=== PATIENT | male | born 1995 | race Caucasian/White ===

== ENCOUNTER 2017-09-09 08:27 | Emergency (ER) | payer OTHER ==
[~2017-09-09] VITALS: Ht 175.3 cm; Wt 83.3 kg
[2017-09-09 08:31] VITALS: TEMP 36.4; Ht 175.3 cm; Wt 83.3 kg
[2017-09-09] MEDS ORDERED: OXYCODONE/ACETAMINOPHEN 5-325 TAB PO STA (09:09)
--- NOTE | 2017-09-09 09:57 | DIAGNOSTIC IMAGING REPORT ---
THORACIC SPINE 3 VIEWS ROUTINE HISTORY: Pain upper r thoracic back pain COMPARISON: None. FINDINGS: There is no fracture. No subluxation. Disc spaces are preserved. IMPRESSION: No fracture or subluxation within the thoracic spine. The above report was generated using voice recognition software. It may contain grammatical, syntax or spelling errors. Electronically signed by: Elliott Alvarado M.D. 09/09/2017 9:56 AM Dictated Date/Time: 09/09/2017 9:56 AM
[2017-09-09 10:30] VITALS: BP 138/103; PULSE 79; O2SAT 99
[2017-09-09] MEDS ORDERED: OXYC-57 PO (10:30)
[2017-09-09] MEDS ORDERED: CYCL10TA6 PO (10:30)
--- NOTE | 2017-09-09 17:24 | EMERGENCY ROOM VISIT NOTE ---
ED Visit Note First contact with patient: 08:42 Chief Complaint: Extreme back pain and muscle spasm. History of Present Illness: Mr. Plata is a 22-year-old white male who ambulates into the ED complaining of thoracic back pain over the right trapezius muscle with back spasm. Historically patient reports he has been having ongoing right trapezius muscle pain and spasm for a while. He reports he was seen by a specialist in his home town nearly [facility] and was placed on a 7 day course of muscle relaxants, steroids and narcotics for his symptoms. He reports he finished this regimen 2 days ago and has had no relief of his discomfort. Patient reports then 2 days ago he was seen in the emergency department at [facility] and reported that trigger port therapy was performed; he reports initially after the therapy he felt slightly better but has been having increasing pain since then. Currently he places his discomfort at the T2-T3 area just right lateral to the thoracic spine within the trapezius muscle. He describes the pain as sharp and spasm. He rates his discomfort 10/10. The pain is nonradiating. The pain worsens with all movement of the shoulder but primarily abduction and abduction , palpation and head extension. He has not identified any alleviating factors related to the pain. He has not taken any additional medications prior to completion of his outpatient therapy from 2 days ago. Social with his pain he reports he feels that there is weakness of the shoulder and has paresthesias up into the shoulder and radiating down the arm until just inferior to the elbow. He denies headache, dizziness, lightheadedness, recent head trauma, abnormal neurological symptoms, upper respiratory tract symptoms, neck stiffness, neck pain, lumbar back pain, cough, wheezing, shortness of breath, abdominal pain, nausea, vomiting, diarrhea, constipation, urinary symptoms. Review of Systems: As noted above in history of present illness. All body systems were reviewed and found to be negative as noted above. Past Medical History: Patient denies. Current Medications: Patient denies. Allergies to Medications: Patient denies. Social History: Patient is a university student and feels safe in his home environment; he denies tobacco use. Physical Examination: Vital Signs: Date Time Temp Pulse Resp B/P (MAP) Pulse Ox O2 Delivery O2 Flow Rate FiO2 09/09/17 10:30 79 18 138/103 99 Room Air 09/09/17 08:31 36.4 75 16 162/106 100 Room Air GENERAL: 22-year-old male in mild to moderate distress due to pain, nontoxic- appearing, afebrile and hemodynamically stable. NEUROLOGICAL: Awake, alert and oriented to person, place and time. Answering questions appropriately and following commands. Normal gait. Good hand eye coordination. SKIN: Warm, dry and pink. No soft tissue eruptions or trauma noted. HEENT: Atraumatic and normocephalic. BACK: No tenderness over the bony cervical, thoracic and lumbar spine. Moderate tenderness with muscle spasm through the upper medial portion of the trapezius muscle. Full range of motion of the third of all and thoracic spine against resistance. No CVA tenderness. THORAX: Lungs sounds are clear to auscultation and equal bilaterally with symmetrical chest wall. UPPER EXTREMITIES: Moves all extremities well on command and with purpose. All distal neurovascular statuses are intact and equal bilaterally. 2+ bicipital, tricipital and brachial radialis deep tendon reflexes intact and equal bilaterally. 5/5 muscle strength in flexion, extension, abduction, abduction, internal and external rotation of the shoulders, flexion and extension of the elbows, pronation and supination the forearms. He was able to distinguish light sensations through all dermatomes of the lower arms and hands. ED Course: Patient is assessed as noted above. Patient's medication list was reviewed. Patient was given one Percocet 5/325 mg tablet by mouth for pain. Thoracic Spine X-Rays: Were read by myself and shows no acute fractures or subluxations. Patient was placed in an arm sling. Patient was educated about today's findings and instructed on his treatment plan ; he verbalized understanding and agreement with this plan. Clinical Impression: Right trapezius muscle spasm. Disposition: Patient discharged home in stable condition; prior to departure he was reassessed and subjectively reported he was feeling better and rated his discomfort 6/10. Plan: For measures were discussed with the patient including rest, ice, sling use and a sliding pain scale of ibuprofen, acetaminophen and Percocet; his name was checked in the state database and no red flags were noted and he was given appropriate narcotic precautions. Additionally he was placed on Flexeril 10 mg every 8 hours for muscle spasm. Patient was encouraged to follow-up with central communications specialist if no better in 5 -7 days. Patient was encouraged return ED for worsening/uncontrolled pain, worsening sensations of weakness, worsening paresthesias or numbness or any new/ concerning symptoms.
== END 2017-09-09 10:50 | disposition home or self-care (01) ==
LOC: C.EDB 08:29 → C.EDA 10:50
DX: M62.838 Other muscle spasm (principal)

== ENCOUNTER 2017-09-12 06:03 | Emergency (ER) | payer OTHER ==
[~2017-09-12] VITALS: Ht 175.3 cm; Wt 81.0 kg
[~2017-09-12 06:03] MED LIST: CYCL10TA6 PO; OXYC-57 PO
[2017-09-12 06:09] VITALS: TEMP 36.3; Ht 175.3 cm; Wt 81.0 kg
[2017-09-12] MEDS ORDERED: KETOROLAC TROMETHAMINE 60 MG/2 ML VIAL IM STA (06:42)
[2017-09-12] MEDS ORDERED: PRED50TA PO (06:45)
[2017-09-12 06:51] VITALS: BP 140/85; PULSE 92; O2SAT 100
--- NOTE | 2017-09-12 07:16 | EMERGENCY ROOM VISIT NOTE ---
History Report prepared by Trang: Yissel Wilhelm Under the Supervision of: Dr. Sami Cisse M.D. First contact with patient: 06:32 Chief Complaint: BACK PAIN Stated Complaint: SEVERE NECK PAIN DOWN INTO RIGHT ARM AND HAND History of Present Illness The patient is a 22 year old male who presents to the Emergency Room with complaints of persistent right upper back pain that began 8 days ago. He currently rates his discomfort as a 9/10 in severity. The patient states that on the 04 of September he was wrestling and when he stood up he developed pain in his right upper back. He states that his pain is located around his trapezius muscle and notes that the pain radiates down his right arm. The patient reports increased pain with extending his neck back. He denies any tingling, numbness, or weakness down his right arm. The patient states that when it first happened he went to an outpatient clinic for evaluation and notes that he was prescribed narcotics, steroids, and muscle relaxers. He states that the narcotics only provided temporary relief for a day, but denies any relief with steroids or muscle relaxers. The patient states that he was evaluated at [facility] and notes that he had trigger point injections in his trapezius that did not alleviate his pain. He states that he was evaluated in the emergency department here on Saturday for his pain and states that he was given more muscle relaxers. The patient states that he has an MRI scheduled for next . He states that he only has five Percocet tablets left. The patient states that he had imaging of his neck and wants no further imaging today. The patient denies headache, change in vision, fevers, chest pain, shortness of breath, nausea, vomiting, and pain with urination. Source of History: patient Onset: 8 days ago Position: back (upper, right) Symptom Intensity: 9/10 Quality: other (radiating) Timing: other (persistent) Review of Systems See HPI for pertinent positives & negatives. A total of 10 systems reviewed and were otherwise negative. Past Medical & Surgical Surgical Problems: (1) [place] teeth extracted Family History Patient reports no known family medical history. Social History Smoking Status: Never Smoker Smokeless Tobacco Use: No Alcohol Use: occasionally Marital Status: single Housing Status: lives with roommate Occupation Status: [employer] student Current/Historical Medications Scheduled Cyclobenzaprine Hcl (Flexeril), 10 MG PO Q8 Prednisone (Prednisone), 50 MG PO DAILY Scheduled PRN Oxycodone/Acetaminophen 5MG/325MG (Percocet 5MG/325MG), 1-2 TABS PO Q6H PRN for Pain Allergies Coded Allergies: No Known Allergies (Unverified , 09/09/17) Physical Exam Vital Signs Date Time Temp Pulse Resp B/P (MAP) Pulse Ox O2 Delivery O2 Flow Rate FiO2 09/12/17 06:51 92 18 140/85 100 Room Air 09/12/17 06:09 36.3 106 20 142/100 100 Room Air Physical Exam GENERAL: Sitting up in bed, alert, well appearing, well nourished, no distress, non-toxic EYE EXAM: normal conjunctiva. PERRL and EOM's grossly intact. OROPHARYNX: no exudate, no erythema, lips, buccal mucosa, and tongue normal and mucous membranes are moist NECK: supple, no nuchal rigidity, no adenopathy, non-tender LUNGS: Clear to auscultation. Normal chest wall mechanics HEART: no murmurs, S1 normal and S2 normal ABDOMEN: abdomen soft, non-tender, normo-active bowel sounds, no masses, no rebound or guarding. BACK: Acute reproducible tenderness in the right upper trapezius tracking up to the lateral scapula. Tenderness along the medial aspect of the scapula. SKIN: no rashes and no bruising UPPER EXTREMITIES: Flexion extension of shoulder, elbow, wrist, grasp, and abduction of digits 5/5 bilaterally, gross sensations intact, radial pulse 2/4. LOWER EXTREMITIES: No pitting edema. NEURO EXAM: Normal sensorium, cranial nerves II-XII grossly intact, normal speech, no gross weakness of arms Medical Decision & Procedures Medications Administered Medications (Trade) Dose Ordered Sig/[place]ell Route Start Time Stop Time Status Last Admin Dose Admin Ketorolac Tromethamine (Toradol Inj) 60 mg NOW STAT IM 09/12/17 06:42 09/12/17 06:44 DC 09/12/17 06:50 60 MG Prednisone (PredniSONE TAB) 40 mg STK-MED ONCE .ROUTE 09/12/17 06:47 09/12/17 06:48 DC 09/12/17 06:50 40 MG Prednisone (PredniSONE TAB) 10 mg STK-MED ONCE .ROUTE 09/12/17 06:47 09/12/17 06:48 DC 09/12/17 06:50 10 MG ED Course ED COURSE: Vital signs were reviewed and showed tachycardic and hypertensive The patients medical record was reviewed The above diagnostic studies were performed and reviewed. ED treatments and interventions as stated above. 0635: The patient was evaluated in room A2. A complete history and physical examination was performed. 0642: Upon reevaluation, the patient is resting comfortably.I discussed my findings with the patient and he understands and agrees with the treatment plan. Based on the patients age, coexisting illnesses, exam and lab findings the decision to treat as an outpatient was made. The patient remained stable while under my care. The patient appeared well at the time of discharge. 0642: Ordered Toradol Inj 60 mg IM. 0645: Ordered Prednisone 50 mg PO. Medical Decision Differential diagnoses includes but is not limited to lumbar radiculopathy, muscle strain, facture, cauda equina, mass, and disc herniation. Patient is a 22-year-old male who presents to ER for right sided trapezius pain/ shoulder pain. This started on the when he was wrestling when he stood up. He has pain on the medial aspect of the scapula and on the superior aspect which is now shooting down his arm. No weakness or numbness. He has been seen by PCP in the ER. Recent x-rays of thoracic spine reviewed here. He admits to previous cervical x-rays. I did recommend repeating this as I am unable to view it but he declined. He was requesting an MRI. He does have this scheduled within 1 week. At this time he is completely neurologically intact. He has been taking Flexeril, steroids and Percocet. He is currently out of steroids at this time. He has 5 Percocet left. He does have muscle relaxers left as well. I do believe this is likely a muscle skeletal as it is reproducible on palpation. There is a component that I feel may be radicular. I did prescribe him an additional dose of steroids. He was given IM Toradol. I do not believe that he needs an emergent MRI in the ER as there is no neuro deficit at this time with his completely intact neuro exam. Patient was updated regards to his findings. He was discharged follow-up with his PCP as an outpatient with steroids to hopefully move up his MRI. Discussed with Pt concerning signs and symptoms to watch out for. Pt was instructed to follow up with their PCP and discussed with the patient their option to return to the ED at anytime for persistent or worsening symptoms. The appropriate anticipatory guidance and out-patient management, including indications for return to the emergency department, were explained at length to the patient and understood. Medication Reconcilliation Current Medication List: was personally reviewed by me Blood Pressure Screening Patient's blood pressure: Elevated blood pressure Blood pressure disposition: Elevated BP felt to be situational, Did not require urgent referral Impression Primary Impression: Radiculopathy Additional Impression: Muscle spasm Scribe Attestation The scribe's documentation has been prepared under my direction and personally reviewed by me in its entirety. I confirm that the note above accurately reflects all work, treatment, procedures, and medical decision making performed by me. Departure Information Dispostion Home / Self-Care Prescriptions Prednisone (PREDNISONE) 50 Mg Tab 50 MG PO DAILY for 4 Days, TAB Prov: Yahir Jamil, DO 09/12/17 Referrals No Doctor, Assigned (PCP) Forms HOME CARE DOCUMENTATION FORM, IMPORTANT VISIT INFORMATION Patient Instructions ED Cervical Radiculopathy, My [facility] Additional Instructions Please follow up with your primary care doctor or if you are a student, [facility] with in the next 24 hours. Any worsening of your symptoms, please return to the ED immediately. This includes any fevers greater than 100.4, worsening pain, weakness or numbness in your arm, or any other concerning signs or symptoms from your standpoint. Please take the steroids as prescribed. You can continue your muscle relaxers and narcotics as needed. Please follow up with your physician for possibly moving up your MRI date. Problem Qualifiers
== END 2017-09-12 06:56 | disposition home or self-care (01) ==
LOC: C.EDB 06:04 → C.EDA 06:56
DX: M54.10 Radiculopathy, site unspecified (principal)

== ENCOUNTER → 2017-09-18 | Outpatient (CLI) | payer OTHER ==
--- NOTE | 2017-09-19 03:16 | DIAGNOSTIC IMAGING REPORT ---
MRI OF THE CERVICAL SPINE WITHOUT IV CONTRAST CLINICAL HISTORY: Cervicalgia. COMPARISON STUDY: No priors. TECHNIQUE: MRI of the cervical spine is performed utilizing various T1 and T2-weighted sequences in the axial and sagittal planes. IV contrast was not administered for this examination. The examination is compromised by motion artifact. FINDINGS: Cervical spine: Vertebral body height and alignment are maintained throughout the cervical spine. Normal marrow signal intensity is preserved throughout the visualized bony structures. The atlantodental articulation appears preserved. The spinous processes are intact. Intervertebral discs: Normal in height and signal intensity. Spinal cord: The cervical spinal cord is normal in morphology and signal intensity. C2-C3: Facet arthropathy is of no consequence. The central canal and neural foramina are patent. C3-C4: Facet arthropathy is of no consequence. The central canal and neural foramina are patent. C4-C5: Uncovertebral and facet arthropathy causes minimal left neural foraminal stenosis. The central canal is patent. C5-C6: There is a posterior disc osteophyte complex. This minimally effaces the ventral subarachnoid space. There is no significant acquired compromise of the central canal. The neural foramina are patent. C6-C7: A posterior disc osteophyte complex eccentric to the right abuts the ventral cord. The minimum AP canal diameter at this level measures 11 mm. A right lateral disc bulge at this level causes moderate to severe right neural foraminal stenosis. This is best seen on axial image #21 and sagittal image #6. C7-T1: Unremarkable. Soft tissues: The prevertebral and paraspinous soft tissues are within normal limits. Brain parenchyma: The visualized brain parenchyma at the skull base is within normal limits. IMPRESSION: 1. The cervical spinal cord is normal in morphology and signal intensity. 2. There is no significant acquired compromise of the central canal. 3. There is a posterior disc osteophyte complex and right lateral disc bulge at C6-C7. This causes moderate to severe right neural foraminal stenosis at this level. 4. See discussion for detailed level by level analysis. Dictated: 09/18/2017 9:38 PM Transcribed: 09/19/2017 3:16 AM Gary Electronically signed by: Ishaan Carranza M.D. 09/19/2017 1:14 PM Dictated Date/Time: 09/18/2017 9:38 PM
== END | disposition home or self-care (01) ==
LOC: C.MRI 20:01
PROVIDERS: ATTEND Orthopaedic Surgery
DX: M25.78 Osteophyte, vertebrae (principal); M50.10 Cervical disc disorder with radiculopathy, unspecified cervical region